=== PATIENT | male | born 1975 | race Caucasian/White ===

== ENCOUNTER 2016-12-11 09:15 | Day surgery (SDC) | payer OTHER ==
[~2016-12-11] VITALS: Ht 180.3 cm; Wt 77.3 kg
[2016-12-11] MEDS ORDERED: PROFE180 MG PO (09:50)
[2016-12-11] MEDS ORDERED: MULTI VITAMINS1 TAB PO (09:51)
[2016-12-11] MEDS ORDERED: VIAGRA 25MG TAB25 MG PO ×2 (09:51→09:52)
[2016-12-11 10:03] VITALS: BP 109/79; PULSE 55; TEMP 97.9
[2016-12-11 10:50] VITALS: BP 94/60; PULSE 94
[2016-12-11 11:00] VITALS: BP 94/77; PULSE 54
[2016-12-11 11:15] VITALS: BP 93/63; PULSE 53
[2016-12-11 11:30] VITALS: BP 90/73; PULSE 51
== END 2016-12-11 11:50 | disposition home or self-care (01) ==
LOC: SDCO 09:15
DX: K92.1 Melena (principal); K64.1 Second degree hemorrhoids; D53.9 Nutritional anemia, unspecified; R14.3 Flatulence
CPT/HCPCS: OP; J2250; J2405; J3010; J7030

== ENCOUNTER 2020-12-17 23:12 | Observation (INO) | payer OTHER ==
[~2020-12-17] VITALS: Ht 180.3 cm; Wt 72.8 kg
[~2020-12-17 23:12] MED LIST: DUO-KAPS1 CAP PO; PROFE180 MG PO; VIAGRA 25MG TAB25 MG PO
[2020-12-18] MEDS ORDERED: CIALIS5 MG PO (01:31)
[2020-12-18] MEDS ORDERED: OSCAL 500 TAB500 MG PO (01:34)
[2020-12-18] MEDS ORDERED: PROBIOTIC DIGE1 EACH PO (01:35)
[2020-12-18] MEDS ORDERED: PROBIOTIC PO (01:37)
[2020-12-18] MEDS ORDERED: MAGNESIUM500 MG PO (01:38)
[2020-12-18 03:28] VITALS: BP 102/64; PULSE 43; TEMP 97.8
--- NOTE | 2020-12-18 07:00 | NUR ---
Report received from DENISE Thomas. PT in bed resting, denies needs, anticipating MRI of head this am, will continue to monitor.
[2020-12-18 08:01] LABS: BASO % 0.5 % (0.0-2.0); EOS # 0.1 (0.0-0.7); EOS % 3.3 % (0-4.0); GRAN # 2.2 (1.4-6.5); HEMATOCRIT 37.5 % (42.0-52.0); HEMOGLOBIN 12.4 g/dl (13.5-18.0); LYMPH # 1.3 (1.2-3.4); LYMPH % 32.9 % (20.0-51.0); MEAN CELL VOLUME 93 fl (80.0-100.0); MEAN CORPUSCULAR HEMOGLOBIN 31 pg (27.0-31.0); MEAN CORPUSCULAR HGB CONC 33 g/dl (33.0-37.0); MEAN PLATELET VOLUME 11.3 fl (7.4-10.4); MONO # 0.3 (0.1-0.6); PLATELET COUNT 167 K/mm3 (130-400); RED BLOOD COUNT 4.03 M/mm3 (4.20-5.60); REDCELL DISTRIBUTION WIDTH-CV 11.7 % (11.5-14.5)
[2020-12-18 08:27] LABS: CALCIUM 8.6 mg/dL (8.4-10.2); CREATININE, serum 1.03 mg/dL (0.72-1.25); POTASSIUM 4.1 mmol/L (3.5-4.5)
--- NOTE | 2020-12-18 10:00 | NUR ---
Assessment charted. Pt back from MRI of head, able to swallow pills whole with water and no issues, advanced diet per Skylar. Pt resting in bed, deneis nay s/sx of a CVA, no weakness noted or aphasia. Pt has INT to R A/C. Denies pain. Will conitnue to monitor.
--- NOTE | 2020-12-18 10:24 | NUR ---
SW met with patient at bedside to discuss d/c plan. Patient is retired from the [employer] and lives in [place] with his , Yissel ([phone]), and 20 year old son. Patient states he is fully independent with ADLs and he has no DME's. He has no oxygen needs at this time. Patient states he was doing some mac when his present event happened. Patient goes to [facility] for his doctor's needs and receives his prescriptions from there as well, without difficulty affording or obtaining them. He states he does not have a MPOA but he would like to complete one, naming his . He requested a form to look at and speak to his about and this worker provided form to patient in room. SW will return to complete form prior to discharge. *D/C Plan: home when medically appropriate
[2020-12-18 10:41] VITALS: BP 104/69; PULSE 85; TEMP 97.7
--- NOTE | 2020-12-18 15:48 | NUR ---
SW met with patient at b/s to assist completing MPOA form. DAVON Sánchez, assisted as witness to patient signature. Patient was provided original with a copy placed in patient chart.
[2020-12-18 16:00] VITALS: BP 104/66; PULSE 56; TEMP 98.2
--- NOTE | 2020-12-18 18:43 | NUR ---
Pt resting in bed, doing well, no s/sx of a CVA or residuals. Will give bedside shift report to assistant shift supervisor nurse who will resume care.
[2020-12-18 19:14] VITALS: BP 113/66; PULSE 56; TEMP 98.8
--- NOTE | 2020-12-18 22:18 | NUR ---
PT RESTING IN BED. EVENING MEDICATIONS GIVEN. SPOKE ON THE PHONE WITH HIS FATHER FOR HIS UPDATES. PT DENIES ANY NEEDS. ASSESSMENT COMPLETED. WILL CONTINUE TO MONITOR.
[2020-12-19 00:17] VITALS: BP 130/59; PULSE 52; TEMP 98.9
[2020-12-19 03:54] VITALS: BP 97/60; PULSE 52; TEMP 98.1
--- NOTE | 2020-12-19 05:36 | NUR ---
PT HAD AN UNEVENTFUL NIGHT. WILL CONTINUE TO MONITOR.
[2020-12-19 07:21] VITALS: BP 108/60; PULSE 81
--- NOTE | 2020-12-19 08:00 | NUR ---
PT PLEASANT, AOX4, DENIES PAIN, PT BRADYCARDIC ON TELE, PT DENIES SYMPTOMS OF BRADYCARDIA , DENIES WEAKNES/RESIDUCAL OF STROKE. NO WEAKNESS NOTED ON NEURO ASSESSMENT, NO OTHER NEEDS
[2020-12-19] MEDS ORDERED: PLAVIX 75MG TAB75 MG PO (09:08)
[2020-12-19] MEDS ORDERED: ASPIRIN 81M81 MG/TA2 PO (09:09)
[2020-12-19] MEDS ORDERED: LIPITOR 80MG80 MG PO (09:09)
--- NOTE | 2020-12-19 10:11 | NUR ---
DISCHARGE EDUCATION PROVIDED, ANSWERED PTS QUESTIONS FOR HIM, IV REMOVED BY STUDENT, TELE REMOVED, ON WAY TO MECHANICAL FACILITIES TECHNICIAN PT, NO OTHER NEEDS
--- NOTE | 2020-12-19 11:15 | NUR ---
PT ESCORTED OUT VIA WHEELCHAIR WITH PT BELONGINGS. DISCHARGE EDUCATION ALREADY PROVIDED, NO OTHER NEEDS
--- NOTE | 2020-12-19 13:06 | NUR ---
Primary nurse was assisted with [phone] patient care by [facility] Student Matty Rojas and [facility] Instructor Phoebe Martinez MSN, RN
== END 2020-12-19 11:15 | disposition home or self-care (01) ==
LOC: MEDICAL 23:12
PROVIDERS: Student in an Organized Health Care Education/Training Program; ADMIT Internal Medicine
DX: I69.320 Aphasia following cerebral infarction (principal); I63.9 Cerebral infarction, unspecified; G81.91 Hemiplegia, unspecified affecting right dominant side; R47.1 Dysarthria and anarthria; R29.702 NIHSS score 2; N17.9 Acute kidney failure, unspecified; R00.1 Bradycardia, unspecified; I44.0 Atrioventricular block, first degree; N52.9 Male erectile dysfunction, unspecified; Z79.899 Other long term (current) drug therapy
CPT/HCPCS: A9585; G0378; J1650

== ENCOUNTER → 2022-12-03 | Outpatient (CLI) | payer OTHER ==
[~2022-12-03] MED LIST changes: +ASPIRIN 81M81 MG/TA2 PO; +CIALIS5 MG PO; +LIPITOR 80MG80 MG PO; +MAGNESIUM500 MG PO; +OSCAL 500 TAB500 MG PO; +PLAVIX 75MG TAB75 MG PO; +PROBIOTIC DIGE1 EACH PO; +PROBIOTIC PO
== END ==
LOC: COL.PUL 14:13
DX: R06.02 Shortness of breath (principal)